=== PATIENT | male | born 1980 | race American Indian/Alaskan Native ===

== ENCOUNTER 2022-04-25 14:12 | Emergency (ER) | payer BC, MEDICAID ==
[~2022-04-25] VITALS: Ht 188 cm; Wt 77.3 kg
[2022-04-25 14:46] VITALS: BP 134/85; TEMP 98.6
[2022-04-25 16:51] VITALS: PULSE 70
== END 2022-04-25 19:29 | disposition home or self-care (01) ==
LOC: COL.ER 14:12
DX: R42 Dizziness and giddiness (principal); R53.81 Other malaise; R51.9 Headache, unspecified; R11.0 Nausea; Z20.822 Contact with and (suspected) exposure to COVID-19
CPT/HCPCS: Q9967